=== PATIENT | male | born 1990 | race African-American/Black ===

== ENCOUNTER 2023-05-10 11:38 | Emergency (ER) | payer OTHER ==
[~2023-05-10] VITALS: Ht 185.4 cm; Wt 127.0 kg
[2023-05-10 11:48] VITALS: O2SAT 100
[2023-05-10] MEDS ORDERED: NAPR-1176 MT (12:56)
[2023-05-10] MEDS ORDERED: METH-653 MT (12:56)
[2023-05-10] MEDS ORDERED: SODIUM CHLORIDE 0.9% 1,000 ML IV ONE (13:00)
[2023-05-10] MEDS ORDERED: METOCLOPRAMIDE HCL 10MG/2ML VIAL IV ONE (13:00)
[2023-05-10 14:07] VITALS: TEMP 97.9
[2023-05-10 14:15] VITALS: BP 128/79; PULSE 78; RESP 19
[2023-05-10] MEDS ORDERED: KETOROLAC 60MG/2ML VIAL IM ONE (14:15)
== END 2023-05-10 14:24 | disposition home or self-care (01) ==
LOC: ER 11:58
DX: M54.16 Radiculopathy, lumbar region (principal); M54.42 Lumbago with sciatica, left side
CPT/HCPCS: 96372; 99283; J1885; Z7610; J7030